=== PATIENT | female | born 1965 | race Caucasian/White ===

== ENCOUNTER 2024-02-05 15:28 | Emergency (ER) | payer BC, SELFPAY ==
[2024-02-05 15:28] VITALS: BP 140/100
--- NOTE | 2024-02-05 18:19 | ED.GENMED ---
History of Present Illness
General
Chief Complaint: Musculo-Skeletal Complaint
Source: patient
Exam Limitations: none
Time Seen by Provider: 02/05/24 17:12
Nursing documentation reviewed up to this point in time: agreed with
History of Present Illness
History of Present Illness:
58-year-old female with past ministry of hypertension, anxiety presenting to the emergency department today with concerns of discomfort to the left knee over the past 4 days denies specific injury has had some mild redness and warmth and discomfort
to the area made worse with movement and certain positions. Denies chest pain shortness of breath or fevers no immunosuppression.
Review of Systems
Review of Systems
Allergies reviewed?: Yes
All Other Systems: ROS reviewed and negative except as documented in HPI and ROS
Phy Exam
Physical Exam
Physical Exam:
GENERAL: Alert , in no apparent distress
EYE: pupils equal and reactive
NECK: Supple, no significant adenopathy.
ENT: o/p clr, mmm.
CARDIAC: Regular rate and rhythm .
LUNGS: Clear breath sounds bilaterally, no acute respiratory distress, no wheezes/rales/rhonchi
ABDOMEN: Soft, without focal tenderness, no r/g, no cvat
NEUROLOGICAL: Alert and oriented, no focal neuro deficits
SKIN: Warm and dry, skin intact.
MUSCULOSKELETAL: well perfused.
PSYCH: Normal and appropriate interaction.
Mild swelling to the left knee no redness or warmth good range of motion
Course
Orders/Labs/Results
Orders:
Orders
02/05/24 15:33
US Periph Venous LOWER Ext LT Urgent
Comment:
Reason For Exam: pain behind left knee
Vital Signs
Initial and Last Documented VS:
Initial Vital Signs
Temp Pulse Resp BP Pulse Ox
98.7 F 108 16 140/100 96
02/05/24 15:28 02/05/24 15:28 02/05/24 15:28 02/05/24 15:28 02/05/24 15:28
Last Documented Vital Signs
Temp Pulse Resp BP Pulse Ox
98.7 F 108 16 140/100 96
02/05/24 15:28 02/05/24 15:28 02/05/24 15:28 02/05/24 15:28 02/05/24 15:28
MDM/Problems Addressed
MDM/Problems Addressed:
58-year-old female presenting to the emergency department today with concerns of left posterior knee discomfort of the past 4 days denies specific injury. Upon arrival mildly tachycardic but improving without specific treatment. Ultrasound without
signs of DVT no redness or warmth no findings consistent with infection. Patient with likely strain advised for rest ice compression elevation and given information for Ortho follow-up as needed.
*Critical Care Note
Total Time (30-74mins, 75-104mins- exclusive of procedures): Not Applicable
ED Attending Note
-
Portions of this chart may have been created with voice recognition software.� Occasional wrong word or��sound alike� substitutions may have occurred due to the inherent limitations of voice recognition software.
Discharge Plan
Departure
Patient Disposition: Home (Routine Discharge)
Date of Disposition: 02/05/24
Time of Disposition: 18:20
Patient with high blood pressure during this ER visit?: No
Condition: Good
Covid-19: Not Applicable
Discharge Problem:
Left knee pain
Instructions: Knee Sprain (DC)
Prescriptions:
No Action
multivitamin Tablet
1 tab PO DAILY
chlorthalidone 25 mg Tablet
25 mg PO DAILY
lorazepam 0.5 mg Tablet
0.5 mg PO DAILY PRN (Reason: anxiety)
diphenhydramine HCl [Benadryl] 25 mg Capsule
25 mg PO HS PRN (Reason: sleep)
fluticasone propionate [Flonase] 50 mcg/actuation Hulbert,Suspension
1 spray INTRANASAL DAILY
cholecalciferol (vitamin D3) [Vitamin D3] 125 mcg (5,000 unit) Tablet
125 mcg PO DAILY
calcium carb-D3-mag ox-zinc ox 333 mg-133 unit -133 mg-5 mg Tablet
1 tab PO DAILY
omega 4-crh-yfa-fish oil [Fish Oil] 60-90-500 mg Capsule
1 cap PO DAILY
Referrals:
Soo Healy DO [Family Provider] -
Td Suarez MD [Active] - Follow up in 5-7 days
Activity Restrictions/Additional Instructions:
You came to the emergency department today with concerns of knee discomfort. Here you had ultrasound without signs of DVT. No signs of infection. Please rest ice compress and elevate to help with symptoms and follow-up with Ortho as needed.
Return to the emergency department for any worsening, new or concerning symptoms.
Interventions
Interventions:
*Risk Screen - Suicide Last Done: 02/05/24 17:21
*General Assessment Last Done: 02/05/24 15:28
*Neglect/Abuse Screening Last Done: 02/05/24 17:26
*ED COVID-19 Vaccine History Last Done: 02/05/24 15:28
ED-Musculoskeletal Assessment Last Done: 02/05/24 17:21
Discharge Date and Time
Print Language: JAPANESE
[2024-02-05 19:02] VITALS: BP 131/86
[2024-02-05 19:03] VITALS: BP 131/86
== END 2024-02-05 19:04 | disposition home or self-care (01) ==
LOC: EMR 15:28
PROVIDERS: EMERGENCY PHYSICIAN Emergency Medicine; FAMILY PHYSICIAN Family Medicine
DX: M25.562 Pain in left knee (principal); R22.42 Localized swelling, mass and lump, left lower limb; R00.0 Tachycardia, unspecified; I10 Essential (primary) hypertension; F41.9 Anxiety disorder, unspecified; Z88.6 Allergy status to analgesic agent
CPT/HCPCS: 99284; 93971

== ENCOUNTER 2024-09-28 12:58 | Emergency (ER) | payer BC, SELFPAY ==
[2024-09-28 13:20] VITALS: BP 134/87
--- NOTE | 2024-09-28 13:35 | ED.GENMED ---
History of Present Illness
General
Chief Complaint: DVT/Possible Blood Clot
Source: patient
Exam Limitations: none
Time Seen by Provider: 09/28/24 13:27
History of Present Illness
History of Present Illness:
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 Symptoms began 3 days ago. She denies any trauma but was at the [facility] the day before her symptoms began. The swelling started in
the popliteal area and has improved but she now has some bruising in the calf. 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 She has an appointment tomorrow with orthopedics but wants to be sure she doesn't
have a DVT. She denies any fevers, chest pain, shortness of breath, syncope.
Phy Exam
General Physical Exam
General Presentation: well appearing and no apparent distress
General age: appears stated age
General Skin: warm and dry
General Habitus: normal
General Mental: alert
ENT Exam
ENT Exam: normocephalic
Pulmonary Exam
Pulmonary Exam: no respiratory distress
[address] Coma Scale
Eye Opening: Spontaneous
Verbal Response: Oriented
Motor Response: Obeys Commands
GCS Total Score: 15
Musculoskeletal Exam
Musculoskeletal Exam: other (Small amount of ecchymosis noted to the L calf. +Tenderness to the L popliteal region. ROM of L knee intact. No pitting edema in extremity. 2+ DP pulse.)
Skin Exam
Skin Exam: normal color and warm/dry
Psychiatric Exam
Psychiatric Exam: normal mood/affect
Course
Orders/Labs/Results
Orders:
Orders
09/28/24 12:59
Periph Venous Lwr Ext Left US [US Periph Venous LOWER Ext LT] Urgent
Comment:
Reason For Exam: L calf pain and swelling
Vital Signs
Initial and Last Documented VS:
Initial Vital Signs
Temp Pulse Resp BP Pulse Ox
98.2 F 92 16 134/87 99
09/28/24 13:20 09/28/24 13:20 09/28/24 13:20 09/28/24 13:20 09/28/24 13:20
Last Documented Vital Signs
Temp Pulse Resp BP Pulse Ox
98.2 F 88 18 130/88 99
09/28/24 13:20 09/28/24 14:00 09/28/24 14:00 09/28/24 14:00 09/28/24 14:00
MDM/Problems Addressed
Differential Diagnosis Includes:
58yoF here with L calf and popliteal pain x several days. Hx of Cunningham's cyst. Wants to be sure she doesn't have a DVT. Denies CP/SOB. VSS. She is well-appearing in no acute distress. There is some ecchymosis to the L calf on exam and popliteal
tenderness. Range of motion of knee intact and no joint effusion present. LLE is neurovascularly intact. Differential diagnosis includes but is not limited to: DVT, Cunningham's cyst, musculoskeletal
Venous duplex obtained which is negative for DVT. Patient is stable for discharge. She has an appointment with orthopedics scheduled for tomorrow. ED return precautions discussed. Patient discharged in stable condition.
*Critical Care Note
Total Time (30-74mins, 75-104mins- exclusive of procedures): Not Applicable
ED Attending Note
-
Portions of this chart may have been created with voice recognition software.� Occasional wrong word or��sound alike� substitutions may have occurred due to the inherent limitations of voice recognition software.
Discharge Plan
Departure
Patient Disposition: Home (Routine Discharge)
Date of Disposition: 09/28/24
Time of Disposition: 15:19
Patient with high blood pressure during this ER visit?: No
Discharge Problem:
Pain of left calf
Instructions: Muscle, joint, and bone pain - Discharge instructions
Prescriptions:
No Action
multivitamin Tablet
1 tab PO DAILY
chlorthalidone 25 mg Tablet
25 mg PO DAILY
lorazepam 0.5 mg Tablet
0.5 mg PO DAILY PRN (Reason: anxiety)
diphenhydramine HCl [Benadryl] 25 mg Capsule
25 mg PO HS PRN (Reason: sleep)
fluticasone propionate [Flonase] 50 mcg/actuation Sebastian,Suspension
1 spray INTRANASAL DAILY
cholecalciferol (vitamin D3) [Vitamin D3] 125 mcg (5,000 unit) Tablet
125 mcg PO DAILY
calcium carb-D3-mag ox-zinc ox 333 mg-133 unit -133 mg-5 mg Tablet
1 tab PO DAILY
omega 2-rdx-kvo-fish oil [Fish Oil] 60-90-500 mg Capsule
1 cap PO DAILY
Referrals:
Soo Healy DO [Family Provider] -
Activity Restrictions/Additional Instructions:
Please follow-up with orthopedics tomorrow as previously scheduled.
Interventions
Interventions:
*Risk Screen - Suicide Last Done: 09/28/24 13:20
*General Assessment Last Done: 09/28/24 13:44
*Neglect/Abuse Screening Last Done: 09/28/24 13:20
ED- Fall Risk Assessment Last Done: 09/28/24 15:31
*ED COVID-19 Vaccine History Last Done: 09/28/24 13:20
*Nursing Disposition Last Done: 09/28/24 15:31
ED- Cardiac Assessment Last Done: 09/28/24 13:44
ED- Pulmonary Assessment Last Done: 09/28/24 13:44
ED-Peripheral Vascular Assessment Last Done: 09/28/24 13:44
ED-Skin Assessment Last Done: 09/28/24 13:44
Discharge Date and Time
Discharge Date/Time: 09/28/24 15:31
Print Language: WELSH
[2024-09-28 14:00] VITALS: BP 130/88
== END 2024-09-28 15:31 | disposition home or self-care (01) ==
LOC: EMR 12:58
PROVIDERS: EMERGENCY PHYSICIAN Emergency Medicine; FAMILY PHYSICIAN Family Medicine; OTHER PHYSICIAN Orthopaedic Surgery
DX: M79.662 Pain in left lower leg (principal); R58 Hemorrhage, not elsewhere classified; M79.89 Other specified soft tissue disorders; M71.22 Synovial cyst of popliteal space [Baker], left knee; I10 Essential (primary) hypertension
CPT/HCPCS: 99284; 93971